=== PATIENT | female | born 1985 | race Caucasian/White ===

== ENCOUNTER 2017-04-02 14:20 | Emergency (ER) | payer OTHER ==
[~2017-04-02] VITALS: Ht 167.6 cm; Wt 68.0 kg
[~2017-04-02 14:20] MED LIST: ALBU90OI INH; Amoxicillin500 MG PO; BIRTH CONTROL; IBUP600 PO; Norco 5-325 Ta1 EACH PO; OXYACE5T PO; Ultram50 MG PO; [UNRECOGNIZED DRUG - OTHER] INH
[2017-04-02] MEDS ORDERED: Bactrim Ds Tab1 EACH PO (15:55)
[2017-04-02] MEDS ORDERED: Norco 5-325 Ta1 EACH PO (15:55)
[2017-04-08] MEDS ORDERED: CEFD300 PO (11:43)
== END 2017-04-02 16:21 | disposition home or self-care (01) ==
LOC: ER 14:20
DX: S61.011A Laceration without foreign body of right thumb without damage to nail, initial encounter (principal); J45.909 Unspecified asthma, uncomplicated; F17.200 Nicotine dependence, unspecified, uncomplicated; Z79.899 Other long term (current) drug therapy; W25.XXXA Contact with sharp glass, initial encounter; S56.321A Laceration of extensor or abductor muscles, fascia and tendons of right thumb at forearm level, initial encounter
CPT/HCPCS: 29125; 99283

== ENCOUNTER 2017-04-09 08:39 | Day surgery (SDC) | payer OTHER ==
[~2017-04-09] VITALS: Ht 170.2 cm; Wt 70.3 kg
[~2017-04-09 08:39] MED LIST changes: +Bactrim Ds Tab1 EACH PO; +CEFD300 PO
== END 2017-04-09 12:50 | disposition home or self-care (01) ==
LOC: ORSCMMR 08:39
PROVIDERS: Orthopaedic Surgery
PROC: 0LQ70ZZ Repair Right Hand Tendon, Open Approach (ICD-10-PCS; principal; 2017-04-09 10:00)
DX: S66.221A Laceration of extensor muscle, fascia and tendon of right thumb at wrist and hand level, initial encounter (principal); J45.998 Other asthma; Z79.899 Other long term (current) drug therapy; F17.210 Nicotine dependence, cigarettes, uncomplicated
CPT/HCPCS: J0690; J2250; J2270; J2405; J3010; J7120

== ENCOUNTER → 2021-02-20 | Outpatient (CLI) | payer OTHER | END | disposition home or self-care (01) | LOC: LAB SHORT 17:30 → LAB 17:30 | DX: N39.0 Urinary tract infection, site not specified (principal) | CPT/HCPCS: 87077; 87086; 87186 ==

== ENCOUNTER → 2022-05-22 | Outpatient (CLI) | payer OTHER | END | disposition home or self-care (01) | LOC: LAB 10:42 → LAB SHORT 10:42 | DX: L02.91 Cutaneous abscess, unspecified (principal) | CPT/HCPCS: 87081 ==

== ENCOUNTER → 2022-10-31 | Outpatient (CLI) | payer OTHER | LOC: LAB SHORT 14:50 → LAB 14:50 | DX: N39.0 Urinary tract infection, site not specified (principal) | CPT/HCPCS: 87086 ==

== ENCOUNTER 2024-08-31 19:42 | Emergency (ER) | payer OTHER ==
[~2024-08-31] VITALS: Ht 165.1 cm; Wt 72.6 kg
[2024-08-31 19:49] VITALS: BP 160/114
[2024-08-31] MEDS ORDERED: OXAYDO5 M1 PO (21:01)
== END 2024-08-31 21:36 | disposition home or self-care (01) ==
LOC: ER 19:42
DX: S92.321A Displaced fracture of second metatarsal bone, right foot, initial encounter for closed fracture (principal); S92.331A Displaced fracture of third metatarsal bone, right foot, initial encounter for closed fracture; S92.341A Displaced fracture of fourth metatarsal bone, right foot, initial encounter for closed fracture; J45.909 Unspecified asthma, uncomplicated; Z87.891 Personal history of nicotine dependence; W17.2XXA Fall into hole, initial encounter
CPT/HCPCS: 73630; 99283-25; A9270